=== PATIENT | male | born 1985 ===

== ENCOUNTER → 2020-09-29 | Outpatient (CLI) | payer OTHER ==
[~2020-09-29] MED LIST: COLACE 100100 MG/CAP PO; GOOD SENSE SLEE25 M1 PO; MOTRIN 600600 MG/TAB PO; NORCO 325 MG-51 TAB PO; Work Release; [UNRECOGNIZED DRUG - OTHER] PO
== END ==
LOC: COL.RAD 10:50
DX: Z09 Encounter for follow-up examination after completed treatment for conditions other than malignant neoplasm (principal); R10.31 Right lower quadrant pain
CPT/HCPCS: Q9967